=== PATIENT | male | born 1965 | race African-American/Black ===

== ENCOUNTER 2024-08-02 20:06 | Emergency (ER) | payer MEDICAID ==
[~2024-08-02] VITALS: Ht 172.7 cm; Wt 86.0 kg
[2024-08-02 20:26] VITALS: O2SAT 99
[2024-08-02] MEDS: TETRACAINE 0.5% OPHTH DROPS 4ML RIGHTEYE ONE (22:26)
[2024-08-02] MEDS ORDERED: TOPUD PO (22:30)
[2024-08-02 22:45] VITALS: BP 161/85; PULSE 79; RESP 18; TEMP 36.78072; O2SAT 100
== END 2024-08-02 22:45 | disposition home or self-care (01) ==
LOC: ER 20:06
DX: S05.31XA Ocular laceration without prolapse or loss of intraocular tissue, right eye, initial encounter (principal); Y04.0XXA Assault by unarmed brawl or fight, initial encounter; Y93.89 Activity, other specified; Y92.89 Other specified places as the place of occurrence of the external cause; Y99.8 Other external cause status
CPT/HCPCS: 70486; 99284